=== PATIENT | female | born 1950 | race Two or more races ===

== ENCOUNTER → 2025-04-23 | Outpatient (CLI) | payer OTHER, MEDICAID, SELFPAY ==
--- NOTE | 2025-04-23 13:27 | XR_ITS ---
Examination:Right hip AP, lateral, AP pelvis 3 views Technique: Hip AP lateral, AP pelvis, 3 views Exam date and time:April 23, 2025 1400 hours INDICATIONS: Right hip pain beginning 2 months ago. FINDINGS: Moderate osteopenia. Moderate narrowing right and left hip joints No right or left hip fracture or dislocation Bones the pelvis intact IMPRESSION: Moderate narrowing hip joints.
== END | disposition home or self-care (01) ==
LOC: CDIM 13:17
PROVIDERS: PCP Internal Medicine; Referring Provider Internal Medicine; Visit Provider Internal Medicine
DX: M25.551 Pain in right hip (principal); M85.88 Other specified disorders of bone density and structure, other site
CPT/HCPCS: 73502